=== PATIENT | male | born 1995 | race Caucasian/White ===

== ENCOUNTER 2017-08-24 23:34 | Observation (INO) | payer BC, OTHER ==
[2017-08-25] MEDS ORDERED: Piperacillin/Tazobact 3.375 gm 100 ML IVPB STA (00:23)
[2017-08-25] MEDS ORDERED: Vancomycin 1gm in NS 250ml 1 GM/250 ML BAG IVPB STA (00:23)
--- NOTE | 2017-08-25 00:26 | ED PDOC ---
Arrival/HPI <Reynold Stephens - Last Filed: 08/25/17 01:18> - General Historian: Patient - History of Present Illness Time/Duration: < week (2 days) Symptom Onset: Gradual Symptom Course: Unchanged Activities at Onset: Light Context: Home <Joya Toribio - Last Filed: 08/25/17 01:53> - General Chief Complaint: Lower Extremity Problem/Injury Time Seen by Provider: 08/25/17 00:20 - History of Present Illness Narrative History of Present Illness (Text): 08/25/17 00:23 22 year old male who presents to the Emergency department complaining of pain, swelling, and redness to the left 4th toe. Patient states for the past 2 days, he has been experiencing mild pain to the left 4th toe and ignored it. Patient noted a blister on the inside of the left 4th toe and popped it. Patient states he looked at his foot later on, reports pain was worse and there was redness extending from the tip of the toe all the way up the foot into the leg. Patient states he did not taken any medication for pain. Patient denies any fever, chills, trauma/injury, chest pain, shortness of breath, nausea, vomiting, fatigue, weakness/numbness/tingling in the extremity, or any other complaints. (Joya Toribio) Past Medical History - Provider Review Nursing Documentation Reviewed: Yes - Psychiatric Hx Substance Use: No <Joya Toribio - Last Filed: 08/25/17 01:53> Family/Social History - Physician Review Nursing Documentation Reviewed: Yes Family/Social History: Unknown Family HX Smoking Status: Light Smoker < 10 Cigarettes Daily Hx Alcohol Use: Yes Frequency of alcohol use: Socially Hx Substance Use: No <Joya Toribio - Last Filed: 08/25/17 01:53> Allergies/Home Meds <Reynold Stephens - Last Filed: 08/25/17 01:18> <Joya Toribio - Last Filed: 08/25/17 01:53> Allergies/Adverse Reactions: Allergies No Known Allergies Allergy (Verified 08/24/17 23:57) Home Medications: Home Meds Medication Instructions Recorded Confirmed No Known Home Med 08/24/17 08/24/17 Review of Systems - Physician Review All systems were reviewed & negative as marked: Yes - Review of Systems Constitutional: Normal. absent: Fatigue, Fevers Eyes: Normal ENT: Normal Respiratory: Normal. absent: SOB Cardiovascular: Normal. absent: Chest Pain Gastrointestinal: Normal. absent: Diarrhea, Nausea, Vomiting Genitourinary Male: Normal. absent: Dysuria, Frequency, Hematuria, Urinary Output Changes Musculoskeletal: Other (+4th left toe swelling/pain/redness). absent: Back Pain , Neck Pain Skin: Normal Neurological: Normal. absent: Dizziness, Focal Weakness Endocrine: Normal Hemo/Lymphatic: Normal Psychiatric: Normal <Joya Toribio - Last Filed: 08/25/17 01:53> Physical Exam Vital Signs Reviewed: Yes Temperature: Afebrile Blood Pressure: Normal Pulse: Regular Respiratory Rate: Normal Appearance: Positive for: Well-Appearing, Non-Toxic, Comfortable Pain Distress: None Mental Status: Positive for: Alert and Oriented X 3 - Systems Exam Head: Present: Atraumatic, Normocephalic Conjunctiva: Present: Normal Mouth: Present: Moist Mucous Membranes Neck: Present: Normal Range of Motion Respiratory/Chest: Present: Clear to Auscultation, Good Air Exchange. No: Respiratory Distress, Accessory Muscle Use Cardiovascular: Present: Regular Rate and Rhythm, Normal S1, S2. No: Murmurs Upper Extremity: Present: Normal ROM Lower Extremity: Present: NORMAL PULSES, Erythema (Left 4th toe edema and erythema surrounding the entire toe with a small blister noted along the medial aspet of toe along the proximal phalanx, streaking erythema extending along dorsal aspect of foot into ankle), Neurovascularly Intact, Capillary Refill < 2 s. No: Cyanosis, Deformity Neurological: Present: GCS=15, Speech Normal, Motor Func Grossly Intact, Normal Sensory Function, Gait Normal Skin: Present: Warm, Dry Psychiatric: Present: Alert, Oriented x 3 <Joya Toribio - Last Filed: 08/25/17 01:53> Vital Signs Temp Pulse Resp BP Pulse Ox 08/24/17 23:57 98.1 F 86 18 132/84 99 Medical Decision Making <Reynold Stephens - Last Filed: 08/25/17 01:18> <Joya Toribio - Last Filed: 08/25/17 01:53> ED Course and Treatment: 08/25/17 00:23 22 year old male complaining of left 4th toe pain, redness, and swelling with streaking erythema along dorsal aspect of foot, ankle and up distal lower leg. afebrile. stable vitals. no distress. Plan: -- CBC, CMP, blood cultures -- XR Left Foot -- Vancomycin IV -- Zosyn IV Progress Notes: cbc; wnl cmp; wnl xrays left foot; no fracture, no fb. 08/25/17 01:[address] garcia in depth; accepts admission for cellulitis of right foot. impression; cellulitis, toe, foot admit to med/surg dr. garcia; consult dr. lyon (Joya Toribio) - Lab Interpretations Lab Results: 08/25/17 00:46 08/25/17 00:46 Lab Results 08/25/17 00:46: WBC 9.1, RBC 4.71, Hgb 15.5, Hct 44.4, MCV 94.3, MCH 32.9, MCHC 34.9, RDW 13.4, Plt Count 174, MPV 9.7, Gran % 66.7, Lymph % (Auto) 24.4, [place] % (Auto) 7.5 H, Eos % (Auto) 1.1 L, Baso % (Auto) 0.3, Gran # 6.06, Lymph # ( Auto) 2.2, [place] # (Auto) 0.7 H, Eos # (Auto) 0.1, Baso # (Auto) 0.03 08/25/17 00:46: Sodium 142, Potassium 4.1, Chloride 101, Carbon Dioxide 28, Anion Gap 17, BUN 16, Creatinine 1.1, Est GFR ( Amer) > 60, Est GFR (Non- Af Amer) > 60, Random Glucose 85, Calcium 9.6, Total Bilirubin 0.8, AST 31, ALT 32, Alkaline Phosphatase 49, Total Protein 8.2, Albumin 4.9 H, Globulin 3.3, Albumin/Globulin Ratio 1.5 - RAD Interpretation Radiology Orders: 08/25/17 00:25 FOOT LEFT 3 VIEWS ROUTINE [RAD] Stat - Medication Orders Current Medication Orders: Vancomycin HCl (Vancomycin 1gm) 1 gm in 250 mls @ 167 mls/hr IVPB STAT STA PRN Reason: Protocol Stop: 08/25/17 01:52 Discontinued Medications Piperacillin Sod/Tazobactam Sod (Zosyn 3.375 In Ns 100ml) 100 mls @ 200 mls/hr IVPB STAT STA PRN Reason: Protocol Stop: 08/25/17 00:52 Last Admin: 08/25/17 01:38 Dose: 200 mls/hr eMAR Start Stop Document 08/25/17 01:38 OCS (Rec: 08/25/17 01:39 OCS [facility] [place] [id number]) Intravenous Solution Start Date 08/25/17 Start Time 00:45 End Date 08/25/17 End time 01:15 Total Infusion Time 30 - PA / PUBLIC SERVICE ADMINISTRATOR / Resident Statement MD/DO has reviewed & agrees with the documentation as recorded. MD/DO has examined the patient and agrees with the treatment plan. <Reynold Stephens - Last Filed: 08/25/17 01:18> - Scribe Statement The provider has reviewed the documentation as recorded by the Scribe <Joya Toribio - Last Filed: 08/25/17 01:53> - Scribe Statement Marisela Moore All medical record entries made by the Scribe were at my direction and personally dictated by me. I have reviewed the chart and agree that the record accurately reflects my personal performance of the history, physical exam, medical decision making, and the department course for this patient. I have also personally directed, reviewed, and agree with the discharge instructions and disposition. (Joya Toribio) Disposition/Present on Arrival <Reynold Stephens - Last Filed: 08/25/17 01:18> - Present on Arrival Any Indicators Present on Arrival: No History of DVT/PE: No History of Uncontrolled Diabetes: No Urinary Catheter: No History of Decub. Ulcer: No History Surgical Site Infection Following: None - Disposition Have Diagnosis and Disposition been Completed?: Yes Disposition Time: 01:53 Patient Plan: Admission <Joya Toribio - Last Filed: 08/25/17 01:53> - Disposition Diagnosis: Cellulitis of foot Disposition: HOSPITALIZED Condition: FAIR Discharge Instructions (ExitCare): Cellulitis (ED) Forms: [employer] ([place])
[2017-08-25 01:09] LABS: ALB/GLOB RATIO 1.5 (1.1-1.8); ALBUMIN 4.9 g/dL (3.0-4.8); ALT/SGPT 32 U/L (7-56); AST/SGOT 31 U/L (17-59); BLOOD UREA NITROGEN 16 mg/dL (7-21); CALCIUM 9.6 mg/dL (8.4-10.5); GFR AFRICAN-AMERICAN > 60; GFR NON-AFRICAN AMERICAN > 60
[2017-08-25 01:10] LABS: BASO # 0.03 K/mm3 (0.0-2.0); BASO % 0.3 % (0.0-3.0); EOS # 0.1 (0.0-0.7); EOS % 1.1 % (1.5-5.0); GRAN # 6.06 (1.4-6.5); GRAN % 66.7 % (50.0-68.0); HEMOGLOBIN 15.5 g/dL (14.0-18.0); LYMPH # 2.2 (1.2-3.4); LYMPH % 24.4 % (22.0-35.0); MEAN CELL VOLUME 94.3 fl (80.0-105.0); MEAN CORPUSCULAR HEMOGLOBIN 32.9 pg (25.0-35.0); MEAN CORPUSCULAR HGB CONC 34.9 g/dl (31.0-37.0); MEAN PLATELET VOLUME 9.7 fl (7.0-11.0); MONO # 0.7 (0.1-0.6); MONO % 7.5 % (1.0-6.0); RBC 4.71 10^6/uL (3.5-6.1); RED CELL DISTRIBUTION WIDTH 13.4 % (11.5-14.5); WHITE BLOOD COUNT 9.1 10^3/ul (4.5-11.0)
[2017-08-25] MEDS ORDERED: Sodium Chloride 0.9% 1,000 ML IV SCH (03:00)
--- NOTE | 2017-08-25 03:07 | CP.PCM.HP ---
<Ruben Zheng - Last Filed: 08/25/17 03:02> History of Present Illness - History of Present Illness History of Present Illness: Medicine H&P: Dr. Whitlock Chief Complaint: Toe injury HPI: 22 year old male with no past medical history presents with 2 day history of left fourth toe pain, swelling and erythema. Patient states that he works for [employer] and wears steel toe boots all day. He states that he had a pimple on his fourth toe which he popped a few days ago and then started having this pain. Denies fevers and chills at home, denies loss of functionality. Review of Systems: 12 point ROS obtained and negative except as per HPI Surgical History: Patient denies Medical History: Patient denies Allergies: Patient denies Social History: Smokes pipe tobacco; Social alcohol; Denies illicits including IVDA Home Meds: Patient denies Family History: Diabetes PMD: Has not been to one in years Present on Admission - Present on Admission Any Indicators Present on Admission: No Past Patient History - Past Social History Smoking Status: Light Smoker < 10 Cigarettes Daily - PSYCHIATRIC Hx Substance Use: No - SURGICAL HISTORY Hx Surgeries: No Meds Allergies/Adverse Reactions: Allergies Allergy/AdvReac Type Severity Reaction Status Date / Time No Known Allergies Allergy Verified 08/25/17 03:07 Physical Exam - Constitutional Appears: Well - Head Exam Head Exam: ATRAUMATIC, NORMAL INSPECTION, NORMOCEPHALIC - Eye Exam Eye Exam: EOMI, Normal appearance, PERRL Pupil Exam: NORMAL ACCOMODATION, PERRL - ENT Exam ENT Exam: Mucous Membranes Moist, Normal Exam - Neck Exam Neck exam: Positive for: Normal Inspection - Respiratory Exam Respiratory Exam: Clear to Auscultation Bilateral, NORMAL BREATHING PATTERN - Cardiovascular Exam Cardiovascular Exam: REGULAR RHYTHM - GI/Abdominal Exam GI & Abdominal Exam: Normal Bowel Sounds, Soft. absent: Tenderness - Extremities Exam Extremities exam: Positive for: full ROM, normal capillary refill, pedal pulses present Additional comments: Plantar aspect of left fourth toe has very mild abrasion with warmth and erythema; mild streaking to the plantar aspect of foot; Neurovascularly in-tact , no loss of functionality. Distal pulses are in-tact. No signs of necrotizing fasciitis - Back Exam Back exam: NORMAL INSPECTION - Neurological Exam Neurological exam: Alert, CN II-XII Intact, Normal Gait, Oriented x3, Reflexes Normal - Psychiatric Exam Psychiatric exam: Normal Affect, Normal Mood - Skin Skin Exam: Dry, Intact, Normal Color, Warm Results - Vital Signs Recent Vital Signs: Last Vital Signs Temp 98.3 F 08/25/17 02:20 Pulse 60 08/25/17 02:20 Resp 18 08/25/17 02:20 BP 126/75 08/25/17 02:20 Pulse Ox 100 08/25/17 02:20 - Labs Result Diagrams: 08/25/17 00:46 08/25/17 00:46 Assessment & Plan - Assessment and Plan (Free Text) Assessment: 22 year old male without medical history presents with fourth toe minor cellulitis. No SIRS criteria present on admission. Foot XR in ED does not show fracture or osteomyelitis. Patient has not tried outpatient antibiotics. Patient's foot is neurovascularly intact with no loss in muscle function, sensation, or distal pulses. Emergency room provider ordered ID Consult and gave one dose each of Vanc/Zosyn. Patient admits to pipe tobacco use. Plan Cellulitis - Advised proper hygiene - Cefepime, NS @ 100 - Follow up blood culture, wound culture, Provide out of bed with assistance - Follow up ID consult: Dr. Walker, per ED Tobacco Abuse - Advised cessation GI/DVT Prophylaxis - Protonix/SCD per low alexei score <Lester Whitlock Q - Last Filed: 08/25/17 06:32> Results - Vital Signs Recent Vital Signs: Last Vital Signs Temp 98.6 F 08/25/17 03:05 Pulse 85 08/25/17 03:05 Resp 19 08/25/17 03:05 BP 137/99 H 08/25/17 03:05 Pulse Ox 100 08/25/17 02:20 - Labs Result Diagrams: 08/25/17 00:46 08/25/17 00:46 Attending/Attestation - Attestation I have personally seen and examined this patient.: Yes I have fully participated in the care of the patient.: Yes I have reviewed all pertinent clinical information: Yes
[2017-08-25 04:02] VITALS: BMI 30.2
[2017-08-25] MEDS ORDERED: Pantoprazole 40 mg EC Tab PO SCH (06:00)
--- NOTE | 2017-08-25 07:47 | RAD ---
PROCEDURE: Left Foot Radiographs. HISTORY: left 4th toe pain/swelling/redness COMPARISON: None. FINDINGS: BONES: No acute fracture or destructive bony lesion identified. JOINTS: No subluxation or dislocation appreciated. SOFT TISSUES: Normal. OTHER FINDINGS: None. IMPRESSION: Unremarkable left foot radiographs.
[2017-08-25 08:42] VITALS: BP 127/75; PULSE 62; RESP 18; TEMP 98; O2SAT 98
[2017-08-25] MEDS ORDERED: Cefepime 1gm in NS 100ml 1 GM/100 ML BAG IVPB SCH (10:00)
--- NOTE | 2017-08-25 11:37 | CP.PCM.DIS ---
<Marlon Ortiz - Last Filed: 08/25/17 11:37> Provider - Provider Date of Admission: 08/25/17 01:46 Attending physician: Batsheva Rodriguez MD Consults: Infectious disease: Dr. Edmundo Hopper Time Spent in preparation of Discharge (in minutes): 25 Diagnosis - Discharge Diagnosis (1) Cellulitis of foot Status: Acute Hospital Course - Lab Results Lab Results: Most Recent Lab Values WBC 9.1 10^3/ul (4.5-11.0) 08/25/17 00:46 RBC 4.71 10^6/uL (3.5-6.1) 08/25/17 00:46 Hgb 15.5 g/dL (14.0-18.0) 08/25/17 00:46 Hct 44.4 % (42.0-52.0) 08/25/17 00:46 MCV 94.3 fl (80.0-105.0) 08/25/17 00:46 MCH 32.9 pg (25.0-35.0) 08/25/17 00:46 MCHC 34.9 g/dl (31.0-37.0) 08/25/17 00:46 RDW 13.4 % (11.5-14.5) 08/25/17 00:46 Plt Count 174 10^3/uL (120.0-450.0) 08/25/17 00:46 MPV 9.7 fl (7.0-11.0) 08/25/17 00:46 Gran % 66.7 % (50.0-68.0) 08/25/17 00:46 Lymph % (Auto) 24.4 % (22.0-35.0) 08/25/17 00:46 [place] % (Auto) 7.5 % (1.0-6.0) H 08/25/17 00:46 Eos % (Auto) 1.1 % (1.5-5.0) L 08/25/17 00:46 Baso % (Auto) 0.3 % (0.0-3.0) 08/25/17 00:46 Gran # 6.06 (1.4-6.5) 08/25/17 00:46 Lymph # (Auto) 2.2 (1.2-3.4) 08/25/17 00:46 [place] # (Auto) 0.7 (0.1-0.6) H 08/25/17 00:46 Eos # (Auto) 0.1 (0.0-0.7) 08/25/17 00:46 Baso # (Auto) 0.03 K/mm3 (0.0-2.0) 05 00:46 Sodium 142 mmol/L (132-148) 08/25/17 00:46 Potassium 4.1 mmol/L (3.6-5.0) 08/25/17 00:46 Chloride 101 mmol/L (98-107) 08/25/17 00:46 Carbon Dioxide 28 mmol/L (21-33) 08/25/17 00:46 Anion Gap 17 (10-20) 08/25/17 00:46 BUN 16 mg/dL (7-21) 08/25/17 00:46 Creatinine 1.1 mg/dl (0.8-1.5) 08/25/17 00:46 Est GFR ( Amer) > 60 05 00:46 Est GFR (Non-Af Amer) > 60 05 00:46 Random Glucose 85 mg/dL (70-110) 08/25/17 00:46 Calcium 9.6 mg/dL (8.4-10.5) 08/25/17 00:46 Total Bilirubin 0.8 mg/dL (0.2-1.3) 08/25/17 00:46 AST 31 U/L (17-59) 08/25/17 00:46 ALT 32 U/L (7-56) 08/25/17 00:46 Alkaline Phosphatase 49 U/L (38-126) 08/25/17 00:46 Total Protein 8.2 g/dL (5.8-8.3) 08/25/17 00:46 Albumin 4.9 g/dL (3.0-4.8) H 08/25/17 00:46 Globulin 3.3 gm/dL 08/25/17 00:46 Albumin/Globulin Ratio 1.5 (1.1-1.8) 08/25/17 00:46 - Hospital Course Hospital Course: 22 year old male with no past medical history presented with 2 day history of left fourth toe pain, swelling and erythema. In ED Patient stated that he works for [employer] and wears steel toe boots all day and stated that he had a pimple on his fourth toe which he popped a few days prior and then started having this pain. Left foot xray was ordered and show no acute disease or evidence of OM. Patient was given Vancomycin and Zosyn by ED physician phlebotomist medical lab assistant and admitted for possible cellulitis. Antibiotics were changed to Cefepime by medical team and patient was monitored overnight. Patient was discharged next day with instructions for continuation of antibiotic therapy. Patient denied difficultly with ambulation, fever, numbness, chills. Discharge planning and medication reconciliation were discussed with patient. Patient was discharged home. - Date & Time of H&P Date of H&P: 08/25/17 Time of H&P: 03:02 Discharge Exam - Head Exam Head Exam: ATRAUMATIC, NORMAL INSPECTION, NORMOCEPHALIC - Eye Exam Eye Exam: EOMI, PERRL - Neck Exam Neck exam: Full Rom - Respiratory Exam Respiratory Exam: Clear to PA & Lateral, NORMAL BREATHING PATTERN - Cardiovascular Exam Cardiovascular Exam: REGULAR RHYTHM, +S1, +S2 - GI/Abdominal Exam GI & Abdominal Exam: Normal Bowel Sounds, Unremarkable - Extremities Exam Extremities exam: normal capillary refill, pedal pulses present Additional comments: left fourth digit with small blister measuring 0.5 cm, no redness, erythema, tacking appreciated on exam - Neurological Exam Neurological exam: Alert, Normal Gait, Oriented x3 - Psychiatric Exam Psychiatric exam: Normal Affect, Normal Mood - Skin Skin Exam: Dry, Warm Discharge Plan - Discharge Medications Prescriptions: Cephalexin [cephalexin] 500 mg PO BID 4 Days cap - Follow Up Plan Condition: FAIR Disposition: HOME/ ROUTINE Instructions: Cellulitis (Skin Infection), Adult (DC), Cellulitis (ED) Additional Instructions: Take medications as prescribed to you Keep blister clean and dry Return to nearest ED if you develop worsening of your symptoms <Batsheva Rodriguez - Last Filed: 08/26/17 09:03> Provider - Provider Date of Admission: 08/25/17 01:46 Attending physician: Batsheva Rodriguez MD Hospital Course - Lab Results Lab Results: Micro Results 08/25/17 06:36 Toe Gram Stain - Final Most Recent Lab Values WBC 9.1 10^3/ul (4.5-11.0) 08/25/17 00:46 RBC 4.71 10^6/uL (3.5-6.1) 08/25/17 00:46 Hgb 15.5 g/dL (14.0-18.0) 08/25/17 00:46 Hct 44.4 % (42.0-52.0) 08/25/17 00:46 MCV 94.3 fl (80.0-105.0) 08/25/17 00:46 MCH 32.9 pg (25.0-35.0) 08/25/17 00:46 MCHC 34.9 g/dl (31.0-37.0) 08/25/17 00:46 RDW 13.4 % (11.5-14.5) 08/25/17 00:46 Plt Count 174 10^3/uL (120.0-450.0) 08/25/17 00:46 MPV 9.7 fl (7.0-11.0) 08/25/17 00:46 Gran % 66.7 % (50.0-68.0) 08/25/17 00:46 Lymph % (Auto) 24.4 % (22.0-35.0) 08/25/17 00:46 [place] % (Auto) 7.5 % (1.0-6.0) H 08/25/17 00:46 Eos % (Auto) 1.1 % (1.5-5.0) L 08/25/17 00:46 Baso % (Auto) 0.3 % (0.0-3.0) 08/25/17 00:46 Gran # 6.06 (1.4-6.5) 08/25/17 00:46 Lymph # (Auto) 2.2 (1.2-3.4) 08/25/17 00:46 [place] # (Auto) 0.7 (0.1-0.6) H 08/25/17 00:46 Eos # (Auto) 0.1 (0.0-0.7) 08/25/17 00:46 Baso # (Auto) 0.03 K/mm3 (0.0-2.0) 08/25/17 00:46 Sodium 142 mmol/L (132-148) 08/25/17 00:46 Potassium 4.1 mmol/L (3.6-5.0) 08/25/17 00:46 Chloride 101 mmol/L (98-107) 08/25/17 00:46 Carbon Dioxide 28 mmol/L (21-33) 08/25/17 00:46 Anion Gap 17 (10-20) 08/25/17 00:46 BUN 16 mg/dL (7-21) 08/25/17 00:46 Creatinine 1.1 mg/dl (0.8-1.5) 08/25/17 00:46 Est GFR ( Amer) > 60 08/25/17 00:46 Est GFR (Non-Af Amer) > 60 08/25/17 00:46 Random Glucose 85 mg/dL (70-110) 08/25/17 00:46 Calcium 9.6 mg/dL (8.4-10.5) 08/25/17 00:46 Total Bilirubin 0.8 mg/dL (0.2-1.3) 08/25/17 00:46 AST 31 U/L (17-59) 08/25/17 00:46 ALT 32 U/L (7-56) 08/25/17 00:46 Alkaline Phosphatase 49 U/L (38-126) 08/25/17 00:46 Total Protein 8.2 g/dL (5.8-8.3) 08/25/17 00:46 Albumin 4.9 g/dL (3.0-4.8) H 08/25/17 00:46 Globulin 3.3 gm/dL 08/25/17 00:46 Albumin/Globulin Ratio 1.5 (1.1-1.8) 08/25/17 00:46 Attending/Attestation - Attestation I have personally seen and examined this patient.: Yes I have fully participated in the care of the patient.: Yes I have reviewed all pertinent clinical information, including history, physical exam and plan: Yes Notes (Text): 08/26/17 09:02 Medical record note made by the resident after discussion with my direction and input after the patient was personally seen and examined by me. I have reviewed the chart and agree that the record accurately reflects by personal performance of the history, physical exam, data review, and medical decision-making, in the course for the patient. I have also personally directed the plan of care. 22 yo male with pimple on 4th left toe that developed mild cellulitis, X ray is negative for any bony involvement.He will discharged home on oral Keflex. He will follow up with PMD . Management plan was discussed in detail with patient. Education was provided.
--- NOTE | 2017-08-25 19:41 | CP.PCM.CON ---
History of Present Illness - History of Present Illness History of Present Illness: Infectious Disease Consultation: August 25, 2017 22 yo male with no previous medical history presenting with 2 day history of left 4th toe pain, swelling, and erythema. Patient had a pimple on the 4th toe that he popped. The patient works for [employer] and wear steel toe boots that he is in the entire day. The patient was started on Zosyn and Vancomycin IV for antibiotic care in ER then switched to Cefepime by medical team. No adverse effects overnight. Supportive care. PMHx: none PSHx: none Allergies: NKDA Social Hx: No illicit drug use. Pipe tobacco Social EtOH. Medications: none at home Family Hx: none ROS: No fevers, chills, nausea, vomiting, diarrhea, headaches, dizziness, chest pain , abdominal pain, melena, hematuria, hematemesis, hematochezia, depression, anxiety, vision loss, hearing loss, loss of consciousness. Past Patient History - Past Social History Smoking Status: Light Smoker < 10 Cigarettes Daily - CARDIAC Hx Cardiac Disorders: No - PULMONARY Hx Respiratory Disorders: No - NEUROLOGICAL Hx Neurological Disorder: No - HEENT Hx HEENT Problems: No - RENAL Hx Chronic Kidney Disease: No - ENDOCRINE/METABOLIC Hx Endocrine Disorders: No - HEMATOLOGICAL/ONCOLOGICAL Hx Blood Disorders: No - INTEGUMENTARY Hx Dermatological Problems: No - MUSCULOSKELETAL/RHEUMATOLOGICAL Hx Musculoskeletal Disorders: No Hx Falls: No - GASTROINTESTINAL Hx Gastrointestinal Disorders: No - GENITOURINARY/GYNECOLOGICAL Hx Genitourinary Disorders: No - PSYCHIATRIC Hx Substance Use: No - SURGICAL HISTORY Hx Surgeries: No Meds Home Medications: Home Medication List Medication Instructions Recorded Confirmed Type Cephalexin [cephalexin] 500 mg PO BID 4 Days cap 08/25/17 Rx Allergies/Adverse Reactions: Allergies Allergy/AdvReac Type Severity Reaction Status Date / Time No Known Allergies Allergy Verified 08/25/17 03:07 Physical Exam - Constitutional Appears: Non-toxic, No Acute Distress - Head Exam Head Exam: ATRAUMATIC, NORMOCEPHALIC - Eye Exam Eye Exam: EOMI, PERRL Pupil Exam: NORMAL ACCOMODATION, PERRL - ENT Exam ENT Exam: Mucous Membranes Moist, Normal External Ear Exam, TM's Normal Bilaterally - Neck Exam Neck exam: Positive for: Full Rom, Normal Inspection - Respiratory Exam Respiratory Exam: Clear to Auscultation Bilateral, NORMAL BREATHING PATTERN. absent: Rales, Rhonchi, Wheezes - Cardiovascular Exam Cardiovascular Exam: REGULAR RHYTHM, RRR, +S1, +S2 - GI/Abdominal Exam GI & Abdominal Exam: Normal Bowel Sounds, Soft. absent: Distended, Tenderness - Extremities Exam Extremities exam: Positive for: full ROM, normal capillary refill, pedal pulses present Additional comments: Plantar aspect of left fourth toe has very mild abrasion with warmth and erythema; mild streaking to the plantar aspect of foot; Neurovascularly in-tact , no loss of functionality. Distal pulses are in-tact. No signs of necrotizing fasciitis - Back Exam Back exam: NORMAL INSPECTION - Neurological Exam Neurological exam: Alert, CN II-XII Intact, Oriented x3 - Psychiatric Exam Psychiatric exam: Normal Affect, Normal Mood - Skin Skin Exam: Intact, Normal Color Additional comments: Except for left 4th toe as above. Results - Vital Signs Recent Vital Signs: Last Vital Signs Temp 98 F 08/25/17 08:40 Pulse 62 08/25/17 08:40 Resp 18 08/25/17 08:40 BP 127/75 08/25/17 08:40 Pulse Ox 98 08/25/17 08:40 - Labs Result Diagrams: 08/25/17 00:46 08/25/17 00:46 Assessment & Plan - Assessment and Plan (Free Text) Assessment: 22 yo male with pimple on 4th left toe that developed mild cellulitis. Currently on Cefepime for treatment. Mild cellulitis that can be continued on oral antibiotic treatment with Keflex 500 mg BID for 7 days. Can follow up as an outpatient. Thank you for allowing me to participate in the care of the patient, we will follow with you.
== END 2017-08-25 18:44 | disposition home or self-care (01) ==
LOC: ED 23:34 → ERH 08-25 01:46 → 3RSO 08-25 02:52
PROVIDERS: ADMIT Internal Medicine; ATTEND Internal Medicine
DX: L03.032 Cellulitis of left toe (principal); F17.290 Nicotine dependence, other tobacco product, uncomplicated
CPT/HCPCS: 73630; 80053; 85025; 87040; 87070; 87181; 96365; 96367; 99285; G0378; J0692; J2543; J7040